=== PATIENT | female | born 1980 | race Caucasian/White ===

== ENCOUNTER → 2021-09-15 | Outpatient (CLI) | payer BC ==
[~2021-09-15] MED LIST: ELAVIL 10 MG TA10 MG PO; ESTRADIOL0.5 MG PO; FOLIC ACID1 MG PO; IBUPROFEN600 MG PO; INDERAL TAB 1010 MG PO; KEFLEX500 MG PO; KEPPRA1000 MG PO; LORTAB 5-325 M1 EACH PO; NAPROXEN 250 M250 MG PO; NORCO 7.5-3251 EACH PO; PERCOCET 5/325 T1 EA PO; PREDNISONE20 MG PO; REQUIP1 MG PO; TROKENDI XR200 MG PO
== END ==
LOC: LAB 09:41
DX: N91.2 Amenorrhea, unspecified (principal)
CPT/HCPCS: 36415; 84703